=== PATIENT | male | born 1960 | race Caucasian/White ===

== ENCOUNTER 2019-06-16 10:58 | Inpatient (IN) | payer OTHER ==
[~2019-06-16] VITALS: Ht 180.3 cm; Wt 0.7 kg
[2019-06-16 12:45] VITALS: BP 137/96
[2019-06-16] MEDS ORDERED: ALPRAZOLAM XR3 MG PO (14:30)
[2019-06-16] MEDS ORDERED: PRADAXA150 MG PO (14:31)
[2019-06-16] MEDS ORDERED: FLUOXETINE HCL40 MG PO (14:33)
[2019-06-16] MEDS ORDERED: LISINOPRIL-HCT1 EAC2 PO (14:34)
[2019-06-16] MEDS ORDERED: ABILIFY 2 MG2 M1 PO (14:35)
[2019-06-16] MEDS ORDERED: TOPROL XL25 MG PO (14:36)
[2019-06-16 15:17] LABS: HEMATOCRIT 45.6 % (42.0-52.0); HEMOGLOBIN 15.6 gm/dL (14.0-18.0); MCH 33.5 pg (26.0-34.0); MCHC 34.1 g/dL (28.0-37.0); MCV 98.1 fL (80.0-100.0); RBC 4.65 mil/uL (4.50-6.00); RDW 13.6 % (10.5-14.5); WBC 8.1 thou/uL (4.0-11.0)
--- NOTE | 2019-06-16 15:32 | NUR ---
PATIENT ARRIVED AT 1245, ALERT AND ORIENTED X4. DENIES ANY CP OR DISCOMFORT. VSS AND AFIB ON THE MONITOR. ADMISSION COMPLETED.
[2019-06-16 15:34] LABS: ANION GAP 10 mmol/L (7-16); BUN 16 mg/dL (7-18); CALCIUM 8.7 mg/dL (8.5-10.1); CHLORIDE 101 mmol/L (98-107); CHOLESTEROL 226 mg/dL (<200); CO2 28 mmol/L (21-32); CREATININE 1.2 mg/dL (0.7-1.3); GLUCOSE 127 mg/dL (74-106); HDL CHOLESTEROL 45 mg/dL (>40); LDL CHOLESTEROL 140 mg/dL (<100); POTASSIUM 3.6 mmol/L (3.5-5.1); SODIUM 139 mmol/L (136-145); TRIGLYCERIDE 208 mg/dL (<150); VLDL 42 mg/dL (<40)
[2019-06-16 15:35] LABS: SERUM ASSESSMENT Clear
[2019-06-16 15:48] LABS: INR 1.2; PROTIME 12.2 Seconds (9.3-11.4)
[2019-06-16 15:50] VITALS: BP 140/102
--- NOTE | 2019-06-16 17:53 | EKG ---
[address] [address] ELECTROCARDIOGRAM REPORT Name: TRIPP GRADY Room #: 209-P ADM IN M.R.#: [id number] Admission: 06/16/19 Attend Phys: Jh Bryant Discharge: Date of : 64 Report #: [id number] THIS REPORT FOR: //name// [facility] Test Date: 2019-06-16 Test Time: 15:06:09 Pat Name: TRIPP GRADY Department: Room: 209 P Gender: M Child Protective Investigator: Bogdan CORADO : 1960 Requested By: Jh Bryant Order Number: [id number] MD: Clovis Plascencia Measurements Intervals [place] Rate: 91 P: PA: QRS: 22 QRSD: 95 T: 5 QT: 348 QTc: 429 Interpretive Statements Atrial fibrillation No previous ECG available for comparison Electronically Signed On 06-16-2019 17:53:06 CYTOLOGY MANAGER by Clovis Plascencia [email or web address] <ELECTRONICALLY SIGNED> By: Clovis Plascencia MD, [facility] 06/16/19 1753 [id number] [id number] Clovis Plascencia MD, FACC /EPI
[2019-06-16 20:35] VITALS: BP 130/90
[2019-06-17] VITALS (13 sets, daily range): BP systolic 126–152; BP diastolic 87–118
--- NOTE | 2019-06-17 04:49 | NUR ---
ASSUMED PT CARE AT 1900. VSS. PT A&0X4 PT IS AFIB ON THE MONITOR RATE CONTROLLED. PT IS STABLE, ON AMIO DRIP AT 16.7ML/HR NO COMPLAINTS OF PAIN OR DISCOMFORT. WILL CONTINUE TO MONITOR PER POC.
--- NOTE | 2019-06-17 10:48 | NUR ---
Pt IV in right forearm infiltrated on arrival to cath laboratory technician holding with amio infusing. A # 20 placed in the right hand without difficulty.
[2019-06-17] MEDS ORDERED: TAMBOCOR 100 M100 M1 PO (13:23)
--- NOTE | 2019-06-17 16:52 | NUR ---
ASSUMMED PT CARE AT APPROXIMATELY 0700. PT A&O X4. ASSESSMENT CHARTED. FALL PRECAUTIONS IN PLACE. PT DENIES HAVING CHEST PAIN. PT DENIES HAVING SOB. PT DENIES HAVING ACUTE PAIN. PT HAD A SUCCESSFUL CARDIOVERSION. PT IN SINUS RHYTHM. PT HAD A NON INTERVENTIONAL CATH. PT BEDREST COMPLETE. R GROIN C/D/I. NO HEMATOMA. PT AMBULATES STEADY/INDEPENDENT. VITAL SIGNS STABLE. IV DC. TELE DC. PT DISCHARGING HOME C SELF CARE. PT AND PT'S SPOUSE RECEIVED DISCHARGE EDUCATION. PT AND PT'S SPOUSE STATED UNDERSTANDING AND DENIED HAVING FURTHER QUESTIONS. PT COMFORTABLE. PT DENIES HAVING FURTHER QUESTIONS. PT TRANSPORTING OFF [facility] TRANSPORT.
--- NOTE | 2019-06-22 14:32 | CATHLAB ---
[facility] [address] [place] [address] INVASIVE PROCEDURE REPORT Name: TRIPP GRADY Room #: 209-P [facility] [place] ..#: [id number] Admission: 06/16/19 Attend Phys: Jh Aldana Discharge: 06/17/19 Date of : 64 Report #: [id number] THIS REPORT FOR: //name// APPROVED REPORT Study performed: 06/17/2019 10:45:08 Patient Details Patient Status: In-Patient Room #: The patient is a 59 year-old male Event Personnel Jh Bryant Carroting Machine Operator, Ashley Sheppard RN RN, Slime Lang RTR Andrew Prakash David Monitor, Leslie Gonzalez db2 developer Performed Left Heart Cath w/or w/o Coronaries [id number] [facility], supervision of conscious sedation Indication Positive stress test, Chest pain Procedure Narrative The Right Groin^ was infiltrated with 1% Lidocaine subcutaneous anesthesia. A PINNACLE 4FR Sheath #[id number] sheath was inserted into the RFA^. Coronary angiography was performed using coronary diagnostic catheters. The right coronary system was accessed and visualized with a JR4 catheter. The left coronary system was accessed and visualized with a JL4 catheter. The left ventricle was accessed and visualized with a PIGTAIL catheter. Left ventricular/Aortic Valve gradient assessed via catheter pullback. Hemostasis was obtained with manual pressure following sheath removal without any complications. The patient tolerated the procedure well and there were no complications associated with the procedure. There was no hematoma. Intraoperative Conscious Sedation Sedation start time: 11.37 Case end Time: 12.28 Versed 6 mg Fluoro Time: 4.40 minutes Dose: DAP 7759.00 cGycm2 847 mGy Contrast Type and Amount: Omnipaque 50 ml [facility] [address] [place] [address] INVASIVE PROCEDURE REPORT Name: YSABELTRIPP W Room #: 209-P [facility].#: [id number] Admission: 06/16/19 Attend Phys: Jh Aldana Discharge: 06/17/19 Date of : 64 Report #: [id number] Coronary Angiography The patient's coronary anatomy is right dominant. Diagnostic Cath Left Main Normal origin and caliber bifurcates left anterior descending left circumflex is free of high-grade disease LAD Moderate caliber type II vessel which courses in the anterior interventricular sulcus. He gives us assess and diagonal branches it tapers towards the apex and terminates as a small caliber vessel at the apex. There is minimal irregularities noted in no high-grade lesions. It is tortuous in its course. Diagonal 1 Small-caliber vessel acid elevated high-grade lesion Circumflex Moderate caliber vessel coursing in the AV groove can rise to marginal branches these are all free of high-grade disease without any significant stenosis noted Right Coronary Monitor large-caliber vessel of normal origin courses in the AV groove the acute margin. Gives rise to right atrial or ventricular is without high-grade lesions noted. Number sees posteriorly giving us to posterior descending artery posterior wall branches R PDA Moderate caliber vessel coursing in the posterior interventricular sulcus was apex free of high-grade disease. No significant obstructive lesions are noted Left Ventriculography Left Ventriculography was not performed. Hemodynamics The aortic pressure is 148/90 mmHg with a mean of 68 mmHg. The left ventricular pressure is 148/12 mmHg with a mean of mmHg. The left ventricular end diastolic pressure is 18 mmHg. There was no gradient across the aortic valve upon pullback. Pullback from the left ventricle to the aorta revealed no gradient across the aortic valve. Conclusion 1. Essentially normal coronary arteries with tortuous course 2. Normal hemodynamics Recommendations [facility] [address] [place] [address] INVASIVE PROCEDURE REPORT Name: TRIPP GRADY Room #: 209-P [facility] [place] .R.#: [id number] Admission: 06/16/19 Attend Phys: Jh Aldana Discharge: 06/17/19 Date of : 64 Report #: [id number] Cardiac Risk Reduction Program Medical Therapy <ELECTRONICALLY SIGNED> By: Jh Bryant MD 06/22/19 1431 [id number] Jh Bryant MD /INF
== END 2019-06-17 17:10 | disposition home or self-care (01) | DRG 287 ==
LOC: 2N 10:58 → TBA 12:09 → 2N 12:09
PROVIDERS: ADMIT Internal Medicine
DX: I48.0 Paroxysmal atrial fibrillation (principal); I10 Essential (primary) hypertension; E78.5 Hyperlipidemia, unspecified; F41.9 Anxiety disorder, unspecified; F32.9 Major depressive disorder, single episode, unspecified; Z82.49 Family history of ischemic heart disease and other diseases of the circulatory system; Z87.891 Personal history of nicotine dependence; Z79.01 Long term (current) use of anticoagulants; Z79.899 Other long term (current) drug therapy
CPT/HCPCS: 10797